=== PATIENT | male | born 1985 | race Caucasian/White ===

== ENCOUNTER 2018-01-18 18:30 | Emergency (ER) | payer OTHER ==
[~2018-01-18] VITALS: Ht 182.9 cm; Wt 68.4 kg
[~2018-01-18 18:30] MED LIST: FLEXERIL5 MG PO; NORCO 5/3251 TABLET PO
[2018-01-18] MEDS ORDERED: ADVIL,NUPRIN,M200 MG PO (19:01)
[2018-01-18 20:16] LABS: HEMATOCRIT 41.2 % (38.0-50.0); HEMOGLOBIN 14.9 G/DL (12.5-16.6); MCH 33.1 PG (29.0-34.0); MCHC 36.2 G/DL (30.0-36.0); MCV 91.6 FL (86-99); PLATELET COUNT 166 K/uL (156-360); RBC DIS.WIDTH-CV 11.6 % (11.8-14.6); RBC DIS.WIDTH-SD 39.1 % (39-53); WHITE BLOOD COUNT 11.2 K/uL (4.1-10.2)
[2018-01-18 20:31] LABS: CHLORIDE 105 mEq/L (99-109); POTASSIUM 4.3 mEq/L (3.7-5.4); SODIUM 140 mEq/L (136-147)
[2018-01-18 20:33] LABS: GLUCOSE 88 mg/dL (70-99)
[2018-01-18 20:36] LABS: CREATININE 0.8 mg/dL (0.6-1.3); GFR ESTIMATE (CALCULATED) > 59 mL/min/ (58.99-99999)
[2018-01-18 20:37] LABS: UREA NITROGEN (BUN) 8 mg/dL (9-23)
[2018-01-18] MEDS ORDERED: MOTRIN800 MG PO (21:07)
[2018-01-18] MEDS ORDERED: KEFLEX500 MG PO (21:07)
[2018-01-18 21:22] LABS: ERTH.SED.RATE 16 MM/HR (0-15)
[2018-01-18 21:23] LABS: C-REACTIVE PROTEIN 90.1 MG/L (0-10)
[2018-01-18 21:33] VITALS: BP 137/81
== END 2018-01-18 21:25 | disposition home or self-care (01) ==
LOC: EME 18:30
PROVIDERS: Nurse Practitioner Family
DX: M25.561 Pain in right knee (principal); M25.461 Effusion, right knee; M71.561 Other bursitis, not elsewhere classified, right knee; F17.200 Nicotine dependence, unspecified, uncomplicated
CPT/HCPCS: 73564; 80048; 85027; 85651; 86140; 99281; 99284; J1885